=== PATIENT | female | born 2000 | race African-American/Black ===

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

== ENCOUNTER 2021-02-14 07:18 | Outpatient (CLI) | payer MEDICAID | END 2021-02-14 07:19 | disposition home or self-care (01) | LOC: NM 07:18 | PROVIDERS: ATTEND Physician Assistant Medical | DX: R10.9 Unspecified abdominal pain (principal); R11.2 Nausea with vomiting, unspecified; R63.4 Abnormal weight loss | CPT/HCPCS: 74019; 78264; A9541 ==

== ENCOUNTER 2021-03-04 08:42 | Outpatient (CLI) | payer OTHER | END 2021-03-04 08:43 | disposition home or self-care (01) | LOC: DTY/OP 08:42 | PROVIDERS: ATTEND Internal Medicine Gastroenterology | DX: K31.84 Gastroparesis (principal); R11.2 Nausea with vomiting, unspecified | CPT/HCPCS: 97802 ==

== ENCOUNTER 2023-10-05 13:35 | Inpatient (IN) | payer SELFPAY ==
[2023-10-05] MEDS: diphenhydrAMINE 50 MG/ML VIAL IVP PRN (20:21)
[2023-10-05] MEDS ORDERED: Electrolyte Replacement Protocol 1 EACH FS SCH (20:21)
[2023-10-05] MEDS ORDERED: Dextrose 5% in Water 1,000 ML IV PRN (20:21)
[2023-10-05] MEDS: Piperacillin/Tazobactam 3.375 GM in Sodium Chloride 0.9% 100 ML IVPB SCH ×2 (20:22→23:52)
[2023-10-05 20:23] LABS: Actual Bicarbonate (HCO3v) 28.5 mEq/L (22-28); Base Excess 3.8 mEq/L (-2.0 to +3.0); Calcium, Ionized (venous) 1.12 mmol/L (1.16-1.32); Chloride (VBG) 91 mmol/L (98-106); Hematocrit-VBG 23 % (36.0-47.0); Hemoglobin (Hb) 7.7 g/dL (11.7-15.5); Potassium (VBG) 3.82 mmol/L (3.70-5.30); Sodium 129 mmol/L (133-146); pH (venous) 7.429 (7.32-7.43)
[2023-10-05 20:27] LABS: Hematocrit 27.7 % (36.0-47.0); Mean Corpuscular HGB CONC 36.1 g/dL (32.0-36.0); Mean Corpuscular Hemoglobin 31.9 pg (27.0-31.0); Mean Corpuscular Volume 88.5 fL (78.0-98.0); Mean Platelet Volume 11.3 fL (7.4-10.4); Platelet Count 83 10x3/uL (130-400); RBC Distribution Width 14.1 % (11.5-14.5); Red Blood Cell (RBC) Count 3.13 mill/uL (4.20-5.40)
[2023-10-05 20:29] LABS: Anion Gap 22 mmol/L (10-20); BUN (Urea Nitrogen) 44 mg/dL (7.0-18.7); Calc. Creatinine Clearance 0 mL/min (70-130); Calcium 9.5 mg/dL (7.8-10.44); Carbon Dioxide 20 mmol/L (22-29); Chloride 94 mmol/L (98-107); Estimated GFR 46; Glucose 327 mg/dL (70-105); Potassium 3.9 mmol/L (3.5-5.1); Sodium 132 mmol/L (136-145)
[2023-10-05 20:42] LABS: Lactic Acid 1.1 mmol/L (0.5-2.2)
[2023-10-05] MEDS ORDERED: Acetaminophen 325 MG TAB PO PRN (20:57)
[2023-10-05 20:59] LABS: Anisocytosis SLIGHT = 6-15 cells HPF (0-5); Band 1 % (5-11); Lymphocytes 10 % (21-51); Macrocytosis SLIGHT = 6-15 cells HPF (0-5); Monocytes 8 % (0-10); Neutrophil 81 % (42-75); Platelet Adequacy Comment Platelets Decreased; Polychromasia SLIGHT = 2-3 cells HPF (0-2); Stomatocytes SLIGHT = 2-5 cells HPF (0-1)
[2023-10-05] MEDS: fentaNYL 50 mcg/mL 1 mL Vial SLOW IVP PRN (21:17)
[2023-10-05] MEDS: Lactated Ringer's 1,000 ML IV SCH (21:30)
[2023-10-05] MEDS: Trospium 20 MG TAB PO SCH (21:38)
[2023-10-05 21:42] LABS: Hematocrit 19.2 % (36.0-47.0); Mean Corpuscular HGB CONC 36.5 g/dL (32.0-36.0); Mean Corpuscular Hemoglobin 32.6 pg (27.0-31.0); Mean Corpuscular Volume 89.3 fL (78.0-98.0); Mean Platelet Volume 11.5 fL (7.4-10.4); Platelet Count 64 10x3/uL (130-400); RBC Distribution Width 14.3 % (11.5-14.5); Red Blood Cell (RBC) Count 2.15 mill/uL (4.20-5.40)
[2023-10-05] MEDS: HumaLOG 300 UNITS/3 ML VIAL SC PRN (21:48)
[2023-10-05 22:21] LABS: HBCM Index 0.08 S/CO (0-0.79); HBsAg Index 0.26 S/CO (0-0.99); Hep A IgM AB NONREACTIVE (NonReactive); Hep A IgM S/CO 0.13 S/CO (0-0.79); Hep B Surf Ag NONREACTIVE S/CO (NonReactive); Hep C IgG Ab NONREACTIVE S/CO (NonReactive); Hep C Index 0.08 S/CO (0-0.79); Hepatitis B Core IgM Abs NONREACTIVE S/CO (NonReactive)
[2023-10-05 22:23] LABS: Anisocytosis SLIGHT = 6-15 cells HPF (0-5); Band 6 % (5-11); Dohle Bodies SLIGHT; Hypochromia SLIGHT = 6-15 cells HPF (0-5); Lymphocytes 11 % (21-51); Macrocytosis SLIGHT = 6-15 cells HPF (0-5); Monocytes 9 % (0-10); Neutrophil 74 % (42-75); Platelet Adequacy Comment Platelets Decreased; Polychromasia SLIGHT = 2-3 cells HPF (0-2)
[2023-10-05] MEDS ORDERED: Hyoscyamine SL 0.125 MG TAB SL SCH (23:59)
[2023-10-06 00:10] LABS: #Basophils Less than 0.03 10x3/uL (0.0-0.2); #Eosinphils Less than 0.03 10x3/uL (0.0-0.7); %Eosinophils 0.2 % (0.0-10.0); %Lymphocytes 11.5 % (21.0-51.0); %Monocytes 11.2 % (0.0-10.0); %Neutrophils 73.9 % (42.0-75.0); Mean Corpuscular HGB CONC 36.8 g/dL (32.0-36.0); Mean Corpuscular Hemoglobin 32.1 pg (27.0-31.0); Mean Corpuscular Volume 87.2 fL (78.0-98.0); Mean Platelet Volume 11.1 fL (7.4-10.4); Platelet Count 77 10x3/uL (130-400); RBC Distribution Width 14.7 % (11.5-14.5); Red Blood Cell (RBC) Count 2.18 mill/uL (4.20-5.40)
[2023-10-06 04:37] LABS: #Basophils Less than 0.03 10x3/uL (0.0-0.2); #Eosinphils Less than 0.03 10x3/uL (0.0-0.7); %Basophils 0.1 % (0.0-1.0); %Eosinophils 0.1 % (0.0-10.0); %Lymphocytes 13.6 % (21.0-51.0); %Monocytes 11.2 % (0.0-10.0); %Neutrophils 70.3 % (42.0-75.0); Hematocrit 18.1 % (36.0-47.0); Hemoglobin 6.6 g/dL (12.0-16.0); Mean Corpuscular HGB CONC 36.5 g/dL (32.0-36.0); Platelet Count 61 10x3/uL (130-400); RBC Distribution Width 15.1 % (11.5-14.5); Red Blood Cell (RBC) Count 2.13 mill/uL (4.20-5.40)
[2023-10-06 04:41] LABS: Anion Gap 14 mmol/L (10-20); BUN (Urea Nitrogen) 36 mg/dL (7.0-18.7); Calc. Creatinine Clearance 60 mL/min (70-130); Calcium 8.4 mg/dL (7.8-10.44); Carbon Dioxide 27 mmol/L (22-29); Chloride 93 mmol/L (98-107); Estimated GFR 57; Glucose 286 mg/dL (70-105); Potassium 3.7 mmol/L (3.5-5.1); Sodium 130 mmol/L (136-145)
[2023-10-06 05:23] LABS: INR-International Normal Ratio 1.2; Prothrombin Time 15.3 sec (12.0-14.7)
[2023-10-06] MEDS: Docusate 100 MG CAP PO SCH (09:09)
[2023-10-06] MEDS: Insulin Glargine 30 UNITS/0.3 ML VIAL SC SCH (09:09)
[2023-10-06] MEDS: Scopolamine 1 mg/72 hour Patch TD SCH (11:05)
[2023-10-06] MEDS: Acetaminophen 500 MG TAB PO SCH (12:24)
[2023-10-06] MEDS ORDERED: Iopamidol-370 76% 500 ML MDV (1 ML CHARGE) ONE (13:34)
[2023-10-06] MEDS ORDERED: EPINEPHrine 1 MG/ML VIAL ONE (13:48)
[2023-10-06] MEDS ORDERED: Iopamidol 15 ML ONE (13:49)
[2023-10-06] MEDS ORDERED: Bupivacaine PF 0.5% 30 ML VIAL ONE (13:49)
[2023-10-06] MEDS ORDERED: Rocuronium Bromide 10 MG/ML (10ML VIAL) ONE (14:00)
[2023-10-06] MEDS ORDERED: fentaNYL PF 100 MCG/2 ML SYRINGE ONE (14:01)
[2023-10-06] MEDS ORDERED: Midazolam HCl 2 mg/2 ml Vial ONE (14:01)
[2023-10-06] MEDS ORDERED: PROPOFOL 0 ML ONE (14:01)
[2023-10-06 14:46] LABS: #Basophils Less than 0.03 10x3/uL (0.0-0.2); #Eosinphils Less than 0.03 10x3/uL (0.0-0.7); %Basophils 0.2 % (0.0-1.0); %Eosinophils 0.2 % (0.0-10.0); %Lymphocytes 9.5 % (21.0-51.0); Hematocrit 23.9 % (36.0-47.0); Hemoglobin 8.6 g/dL (12.0-16.0); Mean Corpuscular Hemoglobin 31.7 pg (27.0-31.0); Mean Corpuscular Volume 88.2 fL (78.0-98.0); Mean Platelet Volume 11.1 fL (7.4-10.4); Platelet Count 114 10x3/uL (130-400); RBC Distribution Width 15.4 % (11.5-14.5); Red Blood Cell (RBC) Count 2.71 mill/uL (4.20-5.40)
[2023-10-06 14:59] LABS: ALT (SGPT) 13 U/L (8-55); AST (SGOT) 23 U/L (5-34); Albumin 2.6 g/dL (3.5-5.0); Alkaline Phosphatase 485 U/L (40-110); Anion Gap 15 mmol/L (10-20); BUN (Urea Nitrogen) 31 mg/dL (7.0-18.7); Bilirubin, Total 1.9 mg/dL (0.2-1.2); Calc. Creatinine Clearance 66 mL/min (70-130); Calcium 8.7 mg/dL (7.8-10.44); Carbon Dioxide 27 mmol/L (22-29); Chloride 94 mmol/L (98-107); Estimated GFR 64; Globulin 3.5 g/dL (2.4-3.5); Glucose 256 mg/dL (70-105); Protein, Total 6.1 g/dL (6.0-8.3); Sodium 132 mmol/L (136-145)
[2023-10-06] MEDS ORDERED: Etomidate 40 MG (20 mL) VIAL ONE (15:10)
[2023-10-06] MEDS ORDERED: Lidocaine 1% PF 5 ML VIAL ONE (15:25)
[2023-10-06] MEDS ORDERED: PHENYLEPHRINE-NS 100 MCG/ML 10 ML SYRINGE ONE (15:39)
[2023-10-06] MEDS ORDERED: Glucagon 1 MG/ML KIT ONE (15:55)
[2023-10-06] MEDS ORDERED: Dexamethasone 20 MG/5 ML VIAL ONE (16:00)
[2023-10-06] MEDS ORDERED: Ondansetron PF 4 MG/2 ML Vial ONE (16:00)
[2023-10-06] MEDS ORDERED: Insulin Regular 300 UNITS/3 ML VIAL ONE (16:03)
[2023-10-06] MEDS ORDERED: SUGAMMADEX SODIUM 200 MG/2 ML VIAL ONE (16:09)
[2023-10-06] MEDS ORDERED: Promethazine HCl 25 MG/ML VIAL IM PRN (16:29)
[2023-10-06] MEDS ORDERED: Ondansetron HCl/PF 4 MG/2 ML Vial IVP PRN (16:29)
[2023-10-06] MEDS ORDERED: HYDROmorphone 2 MG/ML VIAL ONE (16:43)
[2023-10-06] MEDS ORDERED: Promethazine HCl 25 MG/ML VIAL ONE (16:46)
[2023-10-06] MEDS: oxyCODONE 5 MG TAB PO PRN (20:03)
[2023-10-06 20:10] LABS: #Basophils 0.06 10x3/uL (0.0-0.2); #Eosinphils Less than 0.03 10x3/uL (0.0-0.7); %Basophils 0.3 % (0.0-1.0); %Lymphocytes 4.5 % (21.0-51.0); %Monocytes 5.9 % (0.0-10.0); %Neutrophils 86.3 % (42.0-75.0); Hematocrit 28.9 % (36.0-47.0); Hemoglobin 10.5 g/dL (12.0-16.0); Mean Corpuscular HGB CONC 36.3 g/dL (32.0-36.0); Mean Corpuscular Hemoglobin 30.7 pg (27.0-31.0); Mean Corpuscular Volume 84.5 fL (78.0-98.0); Mean Platelet Volume 11.2 fL (7.4-10.4); Platelet Count 109 10x3/uL (130-400); RBC Distribution Width 15.4 % (11.5-14.5); Red Blood Cell (RBC) Count 3.42 mill/uL (4.20-5.40)
[2023-10-06 21:11] LABS: Platelet Adequacy Comment Platelets Decreased; Target Cells SLIGHT = 2-5 cells HPF (0-1)
[2023-10-06] MEDS: traMADol HCl 50 MG TAB PO PRN (23:05)
[2023-10-07] MEDS: Ondansetron PF 4 MG/2 ML Vial IVP PRN (01:48)
[2023-10-07 06:17] LABS: #Basophils 0.03 10x3/uL (0.0-0.2); #Eosinphils Less than 0.03 10x3/uL (0.0-0.7); %Basophils 0.2 % (0.0-1.0); %Lymphocytes 8.3 % (21.0-51.0); %Monocytes 8.5 % (0.0-10.0); %Neutrophils 79.6 % (42.0-75.0); Hematocrit 25.8 % (36.0-47.0); Hemoglobin 9.2 g/dL (12.0-16.0); Mean Corpuscular HGB CONC 35.7 g/dL (32.0-36.0); Mean Corpuscular Hemoglobin 30.8 pg (27.0-31.0); Mean Corpuscular Volume 86.3 fL (78.0-98.0); Mean Platelet Volume 11.6 fL (7.4-10.4); Platelet Count 94 10x3/uL (130-400); RBC Distribution Width 15.9 % (11.5-14.5); Red Blood Cell (RBC) Count 2.99 mill/uL (4.20-5.40)
[2023-10-07 06:39] LABS: ALT (SGPT) 27 U/L (8-55); AST (SGOT) 68 U/L (5-34); Albumin 2.2 g/dL (3.5-5.0); Alkaline Phosphatase 435 U/L (40-110); Anion Gap 19 mmol/L (10-20); BUN (Urea Nitrogen) 37 mg/dL (7.0-18.7); Bilirubin, Direct 1.2 mg/dL (0.1-0.3); Bilirubin, Total 2.1 mg/dL (0.2-1.2); Calc. Creatinine Clearance 74 mL/min (70-130); Calcium 8.3 mg/dL (7.8-10.44); Carbon Dioxide 21 mmol/L (22-29); Chloride 97 mmol/L (98-107); Estimated GFR 72; Glucose 215 mg/dL (70-105); Potassium 4.5 mmol/L (3.5-5.1); Protein, Total 5.3 g/dL (6.0-8.3); Sodium 132 mmol/L (136-145)
[2023-10-07] MEDS: HumaLOG 300 UNITS/3 ML VIAL SC PRN (06:43)
[2023-10-07 06:46] LABS: INR-International Normal Ratio 1.2; Prothrombin Time 15.6 sec (12.0-14.7)
[2023-10-07 06:53] LABS: D-Dimer Test 10.09 mcg/mL (0.27-0.43)
[2023-10-07] MEDS: Albumin 25% 25 GM (100 mL) BOT IVPB SCH (09:26)
[2023-10-07] MEDS: Sodium Bicarbonate 150 MEQ in Dextrose 5% in Water 1,000 ML IV SCH (09:26)
[2023-10-07] MEDS: Promethazine HCl 25 MG in Sodium Chloride 0.9% 50 ML IVPB PRN (21:28)
[2023-10-08 04:52] LABS: #Basophils 0.03 10x3/uL (0.0-0.2); #Eosinphils Less than 0.03 10x3/uL (0.0-0.7); %Basophils 0.2 % (0.0-1.0); %Eosinophils 0.1 % (0.0-10.0); %Lymphocytes 8.1 % (21.0-51.0); %Monocytes 6.6 % (0.0-10.0); %Neutrophils 83.1 % (42.0-75.0); Hematocrit 24.9 % (36.0-47.0); Hemoglobin 9.1 g/dL (12.0-16.0); Mean Corpuscular HGB CONC 36.5 g/dL (32.0-36.0); Mean Corpuscular Hemoglobin 31.7 pg (27.0-31.0); Mean Corpuscular Volume 86.8 fL (78.0-98.0); Platelet Count 101 10x3/uL (130-400); RBC Distribution Width 15.1 % (11.5-14.5); Red Blood Cell (RBC) Count 2.87 mill/uL (4.20-5.40)
[2023-10-08 05:00] LABS: INR-International Normal Ratio 1.3; PTT 32.3 sec (22.9-36.1); Prothrombin Time 16.3 sec (12.0-14.7)
[2023-10-08 05:01] LABS: Lactic Acid 2.7 mmol/L (0.5-2.2)
[2023-10-08 05:07] LABS: ALT (SGPT) 22 U/L (8-55); AST (SGOT) 43 U/L (5-34); Albumin 2.8 g/dL (3.5-5.0); Alkaline Phosphatase 272 U/L (40-110); Anion Gap 15 mmol/L (10-20); BUN (Urea Nitrogen) 26 mg/dL (7.0-18.7); Bilirubin, Total 2.3 mg/dL (0.2-1.2); Calc. Creatinine Clearance 76 mL/min (70-130); Calcium 8.1 mg/dL (7.8-10.44); Carbon Dioxide 29 mmol/L (22-29); Chloride 93 mmol/L (98-107); D-Dimer Test 10.89 mcg/mL (0.27-0.43); Estimated GFR 75; Glucose 193 mg/dL (70-105); Potassium 3.5 mmol/L (3.5-5.1); Protein, Total 5.4 g/dL (6.0-8.3); Sodium 133 mmol/L (136-145)
[2023-10-08] MEDS ORDERED: Potassium Chloride 20 MEQ TAB PO SCH (08:00)
[2023-10-08] MEDS: Potassium Chloride 20 MEQ (100 mL) BAG ONE (08:06)
[2023-10-08] MEDS: Potassium Chloride 20 MEQ in Premix 1 BAG IVPB SCH (08:06)
[2023-10-08] MEDS: Mag-Al 1200 mg/1200 mg/30 ML UDCUP PO SCH (09:32)
[2023-10-08] MEDS ORDERED: Iopamidol-370 76% 500 ML MDV (1 ML CHARGE) ONE (09:58)
[2023-10-08] MEDS: Morphine 2 MG/ML VIAL SLOW IVP PRN (12:58)
[2023-10-08] MEDS: oxyCODONE 5 MG TAB PO PRN (14:28)
[2023-10-08] MEDS ORDERED: Bisacodyl 10 MG SUPP PR PRN (17:48)
[2023-10-08] MEDS: Albumin 25% 25 GM (100 mL) BOT IVPB SCH (18:02)
[2023-10-08] MEDS: Lactated Ringer's 1,000 ML IV SCH (18:03)
[2023-10-08] MEDS: Polyethylene Glycol 3350 17 GM Packet PO SCH (18:11)
[2023-10-08] MEDS: Pantoprazole DR 40 MG TAB PO SCH (18:39)
[2023-10-09 04:09] LABS: #Basophils Less than 0.03 10x3/uL (0.0-0.2); %Basophils 0.1 % (0.0-1.0); %Eosinophils 0.3 % (0.0-10.0); %Lymphocytes 9.5 % (21.0-51.0); %Monocytes 6.1 % (0.0-10.0); Hematocrit 22.3 % (36.0-47.0); Hemoglobin 7.8 g/dL (12.0-16.0); Mean Corpuscular Volume 88.5 fL (78.0-98.0); Mean Platelet Volume 11.9 fL (7.4-10.4); Platelet Count 104 10x3/uL (130-400); Red Blood Cell (RBC) Count 2.52 mill/uL (4.20-5.40)
[2023-10-09 04:24] LABS: INR-International Normal Ratio 1.2; Prothrombin Time 15.3 sec (12.0-14.7)
[2023-10-09 04:25] LABS: PTT 33.5 sec (22.9-36.1)
[2023-10-09 04:31] LABS: ALT (SGPT) 16 U/L (8-55); AST (SGOT) 19 U/L (5-34); Albumin 2.6 g/dL (3.5-5.0); Alkaline Phosphatase 208 U/L (40-110); Anion Gap 15 mmol/L (10-20); BUN (Urea Nitrogen) 18 mg/dL (7.0-18.7); Bilirubin, Direct 0.8 mg/dL (0.1-0.3); Bilirubin, Total 1.6 mg/dL (0.2-1.2); Calc. Creatinine Clearance 99 mL/min (70-130); Calcium 7.9 mg/dL (7.8-10.44); Carbon Dioxide 26 mmol/L (22-29); Chloride 95 mmol/L (98-107); Estimated GFR 103; Glucose 166 mg/dL (70-105); Potassium 3.2 mmol/L (3.5-5.1); Protein, Total 5.1 g/dL (6.0-8.3); Sodium 133 mmol/L (136-145)
[2023-10-09 04:38] LABS: D-Dimer Test 5.12 mcg/mL (0.27-0.43)
[2023-10-09 09:03] LABS: Phosphorus 3.4 mg/dL (2.3-4.7)
[2023-10-09] MEDS: Insulin Glargine 30 UNITS/0.3 ML VIAL SC SCH (09:04)
[2023-10-09 09:05] LABS: Magnesium 1.2 mg/dL (1.6-2.6)
[2023-10-09] MEDS: Scopolamine 1 mg/72 hour Patch TD SCH (09:05)
[2023-10-09] MEDS: Potassium Chloride 20 MEQ TAB PO SCH (09:06)
[2023-10-09] MEDS: Pantoprazole DR 40 MG TAB PO SCH (09:06)
[2023-10-09] MEDS: Polyethylene Glycol 3350 17 GM Packet PO SCH (09:06)
[2023-10-09] MEDS: Lactated Ringer's 1,000 ML IV SCH (09:22)
[2023-10-09] MEDS ORDERED: Insulin Glargine 30 UNITS/0.3 ML VIAL SC SCH (10:08)
[2023-10-09] MEDS: Magnesium Sulfate In Water 4 GM in Premix 1 BAG IVPB SCH (11:53)
[2023-10-09] MEDS: Lorazepam 2 MG/ML VIAL SLOW IVP SCH (11:53)
[2023-10-09] MEDS: Metoclopramide HCl 10 MG (2 mL) VIAL IVP SCH (11:53)
[2023-10-09] MEDS: Metoprolol Tartrate 25 MG TAB PO SCH (20:00)
[2023-10-09] MEDS: Meropenem 2 GM, Admixture Fee 1 EACH in Sodium Chloride 0.9% 100 ML IVPB SCH ×2 (20:51→21:10)
[2023-10-09] MEDS ORDERED: Meropenem 2 GM in Sodium Chloride 0.9% 100 ML IVPB SCH (22:00)
[2023-10-10 03:45] LABS: Actual Bicarbonate (HCO3a) 19.6 mEq/L (22-28); CO2 Tension 25.4 mmHg (35.0-45.0); Calcium, Ionized (arterial) 1.09 mmol/L (1.12-1.30); Carboxyhemoglobin (COHb) 0.1 gm% (0.0-3.0); Hematocrit-ABG 39 % (36.0-47.0); Hemoglobin (Hb) 13.1 g/dL (12.0-16.0); O2 Tension (PaO2), arterial 152.7 mmHg (80.0-100.0); Potassium - ABG Lab 3.26 mmol/L (3.70-5.30); pH, Arterial 7.505 (7.35-7.45)
[2023-10-10 05:29] LABS: #Basophils Less than 0.03 10x3/uL (0.0-0.2); #Eosinphils Less than 0.03 10x3/uL (0.0-0.7); Hemoglobin 7.5 g/dL (12.0-16.0)
[2023-10-10 05:43] LABS: %Basophils 0.1 % (0.0-1.0); %Eosinophils 0.1 % (0.0-10.0); %Lymphocytes 10.3 % (21.0-51.0); %Monocytes 7.6 % (0.0-10.0); %Neutrophils 80.7 % (42.0-75.0); Hematocrit 21.9 % (36.0-47.0); Mean Corpuscular HGB CONC 34.2 g/dL (32.0-36.0); Mean Corpuscular Volume 90.5 fL (78.0-98.0); Mean Platelet Volume 12.1 fL (7.4-10.4); Platelet Count 158 10x3/uL (130-400); RBC Distribution Width 15.2 % (11.5-14.5); Red Blood Cell (RBC) Count 2.42 mill/uL (4.20-5.40)
[2023-10-10 05:54] LABS: ALT (SGPT) 11 U/L (8-55); AST (SGOT) 17 U/L (5-34); Albumin 2.3 g/dL (3.5-5.0); Alkaline Phosphatase 237 U/L (40-110); Anion Gap 9 mmol/L (10-20); BUN (Urea Nitrogen) 11 mg/dL (7.0-18.7); Bilirubin, Direct 0.5 mg/dL (0.1-0.3); Calc. Creatinine Clearance 107 mL/min (70-130); Calcium 7.9 mg/dL (7.8-10.44); Carbon Dioxide 27 mmol/L (22-29); Chloride 99 mmol/L (98-107); Estimated GFR 107; Glucose 65 mg/dL (70-105); Potassium 3.4 mmol/L (3.5-5.1); Protein, Total 5.1 g/dL (6.0-8.3); Sodium 132 mmol/L (136-145)
[2023-10-10 07:58] LABS: Magnesium 1.6 mg/dL (1.6-2.6)
[2023-10-10] MEDS ORDERED: Insulin Glargine 30 UNITS/0.3 ML VIAL SC SCH (09:00)
[2023-10-10] MEDS: Potassium Chloride 20 MEQ TAB PO SCH (09:20)
[2023-10-10] MEDS: Insulin Glargine 30 UNITS/0.3 ML VIAL SC SCH (09:22)
[2023-10-10] MEDS: Magnesium 2 GM/50 ML(in water) 2 GM in Premix 1 BAG IVPB SCH (11:04)
[2023-10-10] MEDS: Albumin 25% 25 GM (100 mL) BOT IVPB SCH ×2 (11:05→17:14)
[2023-10-10] MEDS: Lorazepam 2 MG/ML VIAL SLOW IVP PRN (13:34)
[2023-10-11 04:08] LABS: #Basophils Less than 0.03 10x3/uL (0.0-0.2); #Eosinphils Less than 0.03 10x3/uL (0.0-0.7); %Basophils 0.1 % (0.0-1.0); %Eosinophils 0.1 % (0.0-10.0); %Lymphocytes 11.8 % (21.0-51.0); %Monocytes 8.6 % (0.0-10.0); %Neutrophils 78.5 % (42.0-75.0); Hematocrit 20.4 % (36.0-47.0); Hemoglobin 6.9 g/dL (12.0-16.0); Mean Corpuscular HGB CONC 33.8 g/dL (32.0-36.0); Mean Corpuscular Hemoglobin 31.2 pg (27.0-31.0); Mean Corpuscular Volume 92.3 fL (78.0-98.0); Mean Platelet Volume 11.4 fL (7.4-10.4); Platelet Count 192 10x3/uL (130-400); RBC Distribution Width 15.6 % (11.5-14.5); Red Blood Cell (RBC) Count 2.21 mill/uL (4.20-5.40)
[2023-10-11 04:26] LABS: ALT (SGPT) 9 U/L (8-55); AST (SGOT) 13 U/L (5-34); Alkaline Phosphatase 196 U/L (40-110); Anion Gap 14 mmol/L (10-20); BUN (Urea Nitrogen) 12 mg/dL (7.0-18.7); Bilirubin, Direct 0.5 mg/dL (0.1-0.3); Calc. Creatinine Clearance 92 mL/min (70-130); Carbon Dioxide 21 mmol/L (22-29); Chloride 100 mmol/L (98-107); Estimated GFR 91; Glucose 276 mg/dL (70-105); Magnesium 1.8 mg/dL (1.6-2.6); Potassium 4.2 mmol/L (3.5-5.1); Protein, Total 5.4 g/dL (6.0-8.3); Sodium 131 mmol/L (136-145)
[2023-10-11] MEDS: Metoprolol Tartrate 25 MG TAB PO SCH (08:40)
[2023-10-11] MEDS: Magnesium 2 GM/50 ML(in water) 2 GM in Premix 1 BAG IVPB SCH (08:40)
[2023-10-11] MEDS: Vancomycin 1 GM in Premix 1 BAG IVPB SCH (13:45)
[2023-10-11] MEDS ORDERED: Iopamidol-370 76% 500 ML MDV (1 ML CHARGE) ONE (14:27)
[2023-10-12 00:03] LABS: Hematocrit 24.7 % (36.0-47.0); Hemoglobin 8.6 g/dL (12.0-16.0); Platelet Count 292 10x3/uL (130-400)
[2023-10-12 00:04] LABS: INR-International Normal Ratio 1.2; Prothrombin Time 14.7 sec (12.0-14.7)
[2023-10-12 00:05] LABS: PTT 35.9 sec (22.9-36.1)
[2023-10-12] MEDS: Dextrose 50% Abboject 50 ML SYRINGE SLOW IVP PRN (00:34)
[2023-10-12] MEDS: Morphine 2 MG/ML VIAL SLOW IVP SCH (01:13)
[2023-10-12] MEDS: fentaNYL 50 mcg/mL 1 mL Vial SLOW IVP SCH (03:07)
[2023-10-12 03:39] LABS: #Basophils Less than 0.03 10x3/uL (0.0-0.2); %Basophils 0.2 % (0.0-1.0); %Eosinophils 0.2 % (0.0-10.0); %Lymphocytes 12.2 % (21.0-51.0); %Monocytes 11.5 % (0.0-10.0); Hemoglobin 9.1 g/dL (12.0-16.0); Mean Corpuscular Hemoglobin 31.1 pg (27.0-31.0); Mean Corpuscular Volume 88.7 fL (78.0-98.0); Mean Platelet Volume 10.9 fL (7.4-10.4); Platelet Count 297 10x3/uL (130-400); RBC Distribution Width 16.4 % (11.5-14.5); Red Blood Cell (RBC) Count 2.93 mill/uL (4.20-5.40)
[2023-10-12 04:37] LABS: Anion Gap 12 mmol/L (10-20); BUN (Urea Nitrogen) 10 mg/dL (7.0-18.7); Calc. Creatinine Clearance 94 mL/min (70-130); Calcium 8.3 mg/dL (7.8-10.44); Carbon Dioxide 23 mmol/L (22-29); Chloride 103 mmol/L (98-107); Estimated GFR 93; Glucose 76 mg/dL (70-105); Potassium 4.1 mmol/L (3.5-5.1); Sodium 134 mmol/L (136-145)
[2023-10-12 06:27] LABS: Lactic Acid 0.9 mmol/L (0.5-2.2)
[2023-10-12] MEDS ORDERED: fentaNYL 50 mcg/mL 1 mL Vial ONE (08:17)
[2023-10-12] MEDS ORDERED: Sodium Bicarbonate 2.5 MEQ/5 ML SDV ONE (08:18)
[2023-10-12] MEDS ORDERED: Midazolam HCl 2 mg/2 ml Vial ONE (08:18)
[2023-10-12 11:18] LABS: Body Fluid Source Abscess Fluid; Clarity Cloudy/Turbid (Clear); Tube # EDTA
[2023-10-12 11:19] LABS: BF Color Brown
[2023-10-12] MEDS ORDERED: Senokot S 8.6-50 MG TAB PO PRN (15:18)
[2023-10-12] MEDS: Lorazepam 2 MG/ML VIAL SLOW IVP SCH (19:43)
[2023-10-12] MEDS: Morphine 4 MG/ML VIAL SLOW IVP PRN (20:30)
[2023-10-13] MEDS: Dextrose 5 % And 0.9 % NaCl 1,000 ML IV SCH ×2 (01:15→05:40)
[2023-10-13 01:40] LABS: #Basophils 0.03 10x3/uL (0.0-0.2); %Basophils 0.3 % (0.0-1.0); %Eosinophils 0.4 % (0.0-10.0); %Lymphocytes 13.5 % (21.0-51.0); %Monocytes 12.7 % (0.0-10.0); %Neutrophils 72.3 % (42.0-75.0); Hematocrit 24.7 % (36.0-47.0); Hemoglobin 8.5 g/dL (12.0-16.0); Mean Corpuscular HGB CONC 34.4 g/dL (32.0-36.0); Mean Corpuscular Hemoglobin 30.9 pg (27.0-31.0); Mean Corpuscular Volume 89.8 fL (78.0-98.0); Mean Platelet Volume 10.6 fL (7.4-10.4); Platelet Count 310 10x3/uL (130-400); RBC Distribution Width 16.6 % (11.5-14.5); Red Blood Cell (RBC) Count 2.75 mill/uL (4.20-5.40)
[2023-10-13 01:55] LABS: Anion Gap 12 mmol/L (10-20); BUN (Urea Nitrogen) 10 mg/dL (7.0-18.7); Calc. Creatinine Clearance 108 mL/min (70-130); Calcium 8.2 mg/dL (7.8-10.44); Carbon Dioxide 22 mmol/L (22-29); Chloride 102 mmol/L (98-107); Estimated GFR 109; Glucose 167 mg/dL (70-105); Potassium 3.2 mmol/L (3.5-5.1); Sodium 133 mmol/L (136-145)
[2023-10-13] MEDS: Potassium Chloride 20 MEQ in Premix 1 BAG IVPB SCH (03:10)
[2023-10-13] MEDS: Morphine 4 MG/ML VIAL SLOW IVP PRN ×2 (05:23→20:33)
[2023-10-13] MEDS: Potassium Bicarbonate/Cit Ac 20 MEQ TAB PO SCH (14:53)
[2023-10-13] MEDS: Hyoscyamine SL 0.125 MG TAB PO PRN (16:51)
[2023-10-14] MEDS: Dextrose 5 % And 0.9 % NaCl 1,000 ML IV SCH ×2 (00:11→09:05)
[2023-10-14] MEDS: Morphine 4 MG/ML VIAL SLOW IVP PRN ×2 (02:31→16:00)
[2023-10-14] MEDS: fentaNYL 25 mcg Patch TD SCH ×2 (02:46→12:58)
[2023-10-14 06:33] LABS: #Basophils 0.03 10x3/uL (0.0-0.2); %Basophils 0.3 % (0.0-1.0); %Eosinophils 0.8 % (0.0-10.0); %Lymphocytes 18.4 % (21.0-51.0); %Monocytes 18.2 % (0.0-10.0); %Neutrophils 61.2 % (42.0-75.0); Hematocrit 25.3 % (36.0-47.0); Hemoglobin 8.4 g/dL (12.0-16.0); Mean Corpuscular HGB CONC 33.2 g/dL (32.0-36.0); Mean Corpuscular Volume 90.4 fL (78.0-98.0); Mean Platelet Volume 9.9 fL (7.4-10.4); Platelet Count 397 10x3/uL (130-400); RBC Distribution Width 15.7 % (11.5-14.5)
[2023-10-14 07:27] LABS: Anion Gap 12 mmol/L (10-20); BUN (Urea Nitrogen) 6 mg/dL (7.0-18.7); Calc. Creatinine Clearance 106 mL/min (70-130); Calcium 8.1 mg/dL (7.8-10.44); Carbon Dioxide 23 mmol/L (22-29); Chloride 106 mmol/L (98-107); Estimated GFR 111; Glucose 79 mg/dL (70-105); Potassium 3.7 mmol/L (3.5-5.1); Sodium 137 mmol/L (136-145)
[2023-10-15] MEDS: Acetaminophen 650 MG Suppository PR SCH (05:45)
[2023-10-15 05:59] LABS: #Basophils 0.03 10x3/uL (0.0-0.2); %Basophils 0.3 % (0.0-1.0); %Eosinophils 0.7 % (0.0-10.0); %Monocytes 9.8 % (0.0-10.0); %Neutrophils 77.3 % (42.0-75.0); Hematocrit 25.4 % (36.0-47.0); Hemoglobin 8.3 g/dL (12.0-16.0); Mean Corpuscular HGB CONC 32.7 g/dL (32.0-36.0); Mean Corpuscular Hemoglobin 30.4 pg (27.0-31.0); Mean Platelet Volume 9.7 fL (7.4-10.4); Platelet Count 426 10x3/uL (130-400); RBC Distribution Width 15.4 % (11.5-14.5); Red Blood Cell (RBC) Count 2.73 mill/uL (4.20-5.40)
[2023-10-15 06:26] LABS: Anion Gap 16 mmol/L (10-20); BUN (Urea Nitrogen) 7 mg/dL (7.0-18.7); Calc. Creatinine Clearance 88 mL/min (70-130); Calcium 7.9 mg/dL (7.8-10.44); Carbon Dioxide 19 mmol/L (22-29); Chloride 105 mmol/L (98-107); Estimated GFR 89; Glucose 188 mg/dL (70-105); Potassium 3.2 mmol/L (3.5-5.1); Sodium 137 mmol/L (136-145)
[2023-10-15] MEDS: Lorazepam 2 MG/ML VIAL SLOW IVP PRN (08:27)
[2023-10-15] MEDS: Insulin Glargine 30 UNITS/0.3 ML VIAL SC SCH (09:22)
[2023-10-15] MEDS: Potassium Chloride 20 MEQ TAB PO SCH (09:36)
[2023-10-15] MEDS ORDERED: Iopamidol-370 76% 500 ML MDV (1 ML CHARGE) ONE (10:58)
[2023-10-15] MEDS: Acetaminophen 500 MG TAB PO SCH (12:25)
[2023-10-16 05:33] LABS: #Basophils Less than 0.03 10x3/uL (0.0-0.2); %Basophils 0.2 % (0.0-1.0); %Eosinophils 0.6 % (0.0-10.0); %Lymphocytes 10.8 % (21.0-51.0); %Monocytes 10.4 % (0.0-10.0); %Neutrophils 76.4 % (42.0-75.0); Hemoglobin 8.9 g/dL (12.0-16.0); Mean Corpuscular Hemoglobin 30.3 pg (27.0-31.0); Mean Corpuscular Volume 91.8 fL (78.0-98.0); Mean Platelet Volume 9.8 fL (7.4-10.4); Platelet Count 471 10x3/uL (130-400); Red Blood Cell (RBC) Count 2.94 mill/uL (4.20-5.40)
[2023-10-16 06:23] LABS: Anion Gap 15 mmol/L (10-20); BUN (Urea Nitrogen) 6 mg/dL (7.0-18.7); Calc. Creatinine Clearance 91 mL/min (70-130); Calcium 8.5 mg/dL (7.8-10.44); Carbon Dioxide 20 mmol/L (22-29); Chloride 105 mmol/L (98-107); Estimated GFR 92; Glucose 154 mg/dL (70-105); Potassium 3.7 mmol/L (3.5-5.1); Sodium 136 mmol/L (136-145)
[2023-10-16] MEDS: hydrOXYzine 25 MG TAB PO PRN (09:19)
[2023-10-16] MEDS: Sodium Chloride 0.9% 1,000 ML IV SCH ×2 (12:27→16:55)
[2023-10-16] MEDS: Morphine 4 MG/ML VIAL SLOW IVP PRN (15:34)
[2023-10-16] MEDS: Ketorolac Tromethamine 30 MG (1 mL) VIAL IVP SCH (16:54)
[2023-10-17 19:08] LABS: Anion Gap 14 mmol/L (10-20); BUN (Urea Nitrogen) 6 mg/dL (7.0-18.7); Calc. Creatinine Clearance 95 mL/min (70-130); Carbon Dioxide 19 mmol/L (22-29); Chloride 106 mmol/L (98-107); Estimated GFR 107; Glucose 56 mg/dL (70-105); Sodium 136 mmol/L (136-145)
[2023-10-17 19:09] LABS: #Basophils 0.06 10x3/uL (0.0-0.2); %Basophils 0.5 % (0.0-1.0); %Eosinophils 0.5 % (0.0-10.0); %Lymphocytes 12.5 % (21.0-51.0); %Monocytes 13.4 % (0.0-10.0); %Neutrophils 71.3 % (42.0-75.0); Hematocrit 26.2 % (36.0-47.0); Hemoglobin 8.9 g/dL (12.0-16.0); Mean Corpuscular Hemoglobin 30.3 pg (27.0-31.0); Mean Corpuscular Volume 89.1 fL (78.0-98.0); Mean Platelet Volume 9.9 fL (7.4-10.4); Platelet Count 494 10x3/uL (130-400); RBC Distribution Width 14.8 % (11.5-14.5); Red Blood Cell (RBC) Count 2.94 mill/uL (4.20-5.40)
[2023-10-17] MEDS: Potassium Chloride 20 MEQ TAB PO SCH (22:30)
[2023-10-18] MEDS: Glucagon 1 MG/ML KIT IM PRN (05:26)
[2023-10-18 05:43] LABS: #Basophils 0.03 10x3/uL (0.0-0.2); %Basophils 0.3 % (0.0-1.0); %Eosinophils 0.9 % (0.0-10.0); %Lymphocytes 17.5 % (21.0-51.0); %Monocytes 18.2 % (0.0-10.0); %Neutrophils 61.2 % (42.0-75.0); Hematocrit 25.6 % (36.0-47.0); Hemoglobin 8.6 g/dL (12.0-16.0); Mean Corpuscular HGB CONC 33.6 g/dL (32.0-36.0); Mean Corpuscular Hemoglobin 30.6 pg (27.0-31.0); Mean Corpuscular Volume 91.1 fL (78.0-98.0); Mean Platelet Volume 9.6 fL (7.4-10.4); Platelet Count 487 10x3/uL (130-400); RBC Distribution Width 14.6 % (11.5-14.5); Red Blood Cell (RBC) Count 2.81 mill/uL (4.20-5.40)
[2023-10-18 06:15] LABS: Anion Gap 12 mmol/L (10-20); BUN (Urea Nitrogen) 5 mg/dL (7.0-18.7); Calc. Creatinine Clearance 101 mL/min (70-130); Calcium 7.8 mg/dL (7.8-10.44); Carbon Dioxide 21 mmol/L (22-29); Chloride 106 mmol/L (98-107); Estimated GFR 116; Glucose 53 mg/dL (70-105); Potassium 2.9 mmol/L (3.5-5.1); Sodium 136 mmol/L (136-145)
[2023-10-18] MEDS: Potassium Chloride 20 MEQ TAB PO SCH (08:20)
[2023-10-18] MEDS: Ketorolac Tromethamine 30 MG (1 mL) VIAL IVP PRN (08:30)
[2023-10-18] MEDS ORDERED: Sodium Bicarbonate 2.5 MEQ/5 ML SDV ONE (12:27)
[2023-10-18] MEDS ORDERED: Lidocaine 1% PF 5 ML VIAL ONE (12:28)
[2023-10-18] MEDS: Sodium Chloride 0.9% 1,000 ML IV SCH (15:49)
[2023-10-18] MEDS: Promethazine HCl 25 MG in Sodium Chloride 0.9% 50 ML IVPB PRN (16:24)
[2023-10-19 06:17] VITALS: BMI 24.7
[2023-10-19 06:26] LABS: Anion Gap 11 mmol/L (10-20); BUN (Urea Nitrogen) 6 mg/dL (7.0-18.7); Calc. Creatinine Clearance 113 mL/min (70-130); Calcium 7.8 mg/dL (7.8-10.44); Carbon Dioxide 22 mmol/L (22-29); Chloride 105 mmol/L (98-107); Estimated GFR 118; Glucose 38 mg/dL (70-105); Potassium 2.7 mmol/L (3.5-5.1); Sodium 135 mmol/L (136-145)
[2023-10-19 07:09] LABS: #Basophils Less than 0.03 10x3/uL (0.0-0.2); %Basophils 0.2 % (0.0-1.0); %Eosinophils 0.8 % (0.0-10.0); %Lymphocytes 6.8 % (21.0-51.0); Hemoglobin 9.1 g/dL (12.0-16.0); Mean Corpuscular HGB CONC 32.5 g/dL (32.0-36.0); Mean Corpuscular Hemoglobin 29.9 pg (27.0-31.0); Mean Corpuscular Volume 92.1 fL (78.0-98.0); Mean Platelet Volume 9.8 fL (7.4-10.4); Platelet Count 568 10x3/uL (130-400); RBC Distribution Width 14.8 % (11.5-14.5); Red Blood Cell (RBC) Count 3.04 mill/uL (4.20-5.40)
[2023-10-19] MEDS: Potassium Chloride 20 MEQ TAB PO SCH ×2 (08:27→20:38)
[2023-10-19] MEDS ORDERED: Insulin Glargine 30 UNITS/0.3 ML VIAL SC SCH (08:38)
[2023-10-19 09:46] LABS: Magnesium 1.3 mg/dL (1.6-2.6)
[2023-10-19] MEDS: Magnesium Sulfate In Water 4 GM in Premix 1 BAG IVPB SCH (11:24)
[2023-10-19] MEDS ORDERED: Potassium Chloride 20 MEQ TAB PO SCH (15:00)
[2023-10-20 05:48] LABS: Hematocrit 24.3 % (36.0-47.0); Hemoglobin 8.2 g/dL (12.0-16.0); Mean Corpuscular HGB CONC 33.7 g/dL (32.0-36.0); Mean Corpuscular Hemoglobin 29.8 pg (27.0-31.0); Mean Corpuscular Volume 88.4 fL (78.0-98.0); Mean Platelet Volume 9.6 fL (7.4-10.4); Platelet Count 543 10x3/uL (130-400); RBC Distribution Width 14.6 % (11.5-14.5); Red Blood Cell (RBC) Count 2.75 mill/uL (4.20-5.40)
[2023-10-20 06:06] LABS: Anion Gap 11 mmol/L (10-20); BUN (Urea Nitrogen) 6 mg/dL (7.0-18.7); Calc. Creatinine Clearance 111 mL/min (70-130); Calcium 7.9 mg/dL (7.8-10.44); Carbon Dioxide 23 mmol/L (22-29); Chloride 105 mmol/L (98-107); Estimated GFR 116; Glucose 105 mg/dL (70-105); Potassium 3.5 mmol/L (3.5-5.1); Sodium 135 mmol/L (136-145)
[2023-10-20] MEDS: Potassium Chloride 20 MEQ TAB PO SCH ×4 (06:29→22:06)
[2023-10-20 12:37] LABS: Potassium 3.5 mmol/L (3.5-5.1)
[2023-10-20 21:03] LABS: Potassium 3.5 mmol/L (3.5-5.1)
[2023-10-21 05:42] LABS: #Basophils 0.03 10x3/uL (0.0-0.2); %Basophils 0.3 % (0.0-1.0); %Eosinophils 2.2 % (0.0-10.0); %Lymphocytes 19.3 % (21.0-51.0); %Neutrophils 64.9 % (42.0-75.0); Hematocrit 24.5 % (36.0-47.0); Hemoglobin 8.1 g/dL (12.0-16.0); Hemoglobin 8.3 g/dL (12.0-16.0); Mean Corpuscular HGB CONC 33.1 g/dL (32.0-36.0); Mean Corpuscular HGB CONC 33.9 g/dL (32.0-36.0); Mean Corpuscular Volume 88.4 fL (78.0-98.0); Mean Corpuscular Volume 90.7 fL (78.0-98.0); Mean Platelet Volume 9.4 fL (7.4-10.4); Mean Platelet Volume 9.5 fL (7.4-10.4); Platelet Count 535 10x3/uL (130-400); Platelet Count 542 10x3/uL (130-400); RBC Distribution Width 14.5 % (11.5-14.5); RBC Distribution Width 14.6 % (11.5-14.5); Red Blood Cell (RBC) Count 2.77 mill/uL (4.20-5.40)
[2023-10-21 05:56] LABS: Anion Gap 11 mmol/L (10-20); BUN (Urea Nitrogen) 5 mg/dL (7.0-18.7); Calc. Creatinine Clearance 111 mL/min (70-130); Carbon Dioxide 24 mmol/L (22-29); Chloride 107 mmol/L (98-107); Estimated GFR 116; Glucose 132 mg/dL (70-105); Potassium 3.3 mmol/L (3.5-5.1); Sodium 139 mmol/L (136-145)
[2023-10-21] MEDS: Potassium Chloride 20 MEQ TAB PO SCH (06:31)
[2023-10-21 23:17] LABS: Potassium 3.3 mmol/L (3.5-5.1)
[2023-10-22] MEDS: Potassium Chloride 20 MEQ TAB PO SCH ×3 (00:43→14:32)
[2023-10-22 05:58] LABS: #Basophils 0.03 10x3/uL (0.0-0.2); %Basophils 0.3 % (0.0-1.0); %Eosinophils 2.3 % (0.0-10.0); %Lymphocytes 17.6 % (21.0-51.0); %Monocytes 11.1 % (0.0-10.0); %Neutrophils 67.9 % (42.0-75.0); Hemoglobin 7.8 g/dL (12.0-16.0); Mean Corpuscular HGB CONC 33.9 g/dL (32.0-36.0); Mean Corpuscular Hemoglobin 30.6 pg (27.0-31.0); Mean Corpuscular Volume 90.2 fL (78.0-98.0); Mean Platelet Volume 9.4 fL (7.4-10.4); Platelet Count 557 10x3/uL (130-400); RBC Distribution Width 14.6 % (11.5-14.5); Red Blood Cell (RBC) Count 2.55 mill/uL (4.20-5.40)
[2023-10-22 06:19] LABS: Anion Gap 11 mmol/L (10-20); BUN (Urea Nitrogen) 4 mg/dL (7.0-18.7); Calc. Creatinine Clearance 119 mL/min (70-130); Carbon Dioxide 26 mmol/L (22-29); Chloride 106 mmol/L (98-107); Estimated GFR 127; Glucose 86 mg/dL (70-105); Magnesium 1.5 mg/dL (1.6-2.6); Sodium 140 mmol/L (136-145)
[2023-10-22] MEDS: Magnesium 2 GM/50 ML(in water) 2 GM in Premix 1 BAG IVPB SCH (07:53)
[2023-10-22 13:44] LABS: Potassium 3.1 mmol/L (3.5-5.1)
[2023-10-22 22:10] LABS: Potassium 3.1 mmol/L (3.5-5.1)
[2023-10-22] MEDS: Potassium Chloride 20 MEQ in Premix 1 BAG IVPB SCH (22:47)
[2023-10-23] MEDS: Potassium Chloride 20 MEQ TAB PO SCH (01:31)
[2023-10-23 05:55] LABS: Hemoglobin 7.6 g/dL (12.0-16.0); Mean Corpuscular Volume 90.9 fL (78.0-98.0); Mean Platelet Volume 9.3 fL (7.4-10.4); Platelet Count 528 10x3/uL (130-400); RBC Distribution Width 14.6 % (11.5-14.5); Red Blood Cell (RBC) Count 2.53 mill/uL (4.20-5.40)
[2023-10-23 06:12] LABS: Anion Gap 11 mmol/L (10-20); BUN (Urea Nitrogen) 5 mg/dL (7.0-18.7); Calc. Creatinine Clearance 114 mL/min (70-130); Calcium 8.4 mg/dL (7.8-10.44); Carbon Dioxide 26 mmol/L (22-29); Chloride 105 mmol/L (98-107); Estimated GFR 124; Glucose 112 mg/dL (70-105); Magnesium 1.7 mg/dL (1.6-2.6); Potassium 3.6 mmol/L (3.5-5.1); Sodium 138 mmol/L (136-145)
[2023-10-23] MEDS: Magnesium 2 GM/50 ML(in water) 2 GM in Premix 1 BAG IVPB SCH (08:23)
[2023-10-23] MEDS: NS 0.9% w/ 40 MEQ KCL 1,000 ML IV SCH (11:54)
[2023-10-24 06:14] LABS: #Basophils Less than 0.03 10x3/uL (0.0-0.2); %Basophils 0.2 % (0.0-1.0); %Eosinophils 2.6 % (0.0-10.0); %Lymphocytes 15.1 % (21.0-51.0); %Monocytes 9.9 % (0.0-10.0); %Neutrophils 71.9 % (42.0-75.0); Hematocrit 26.1 % (36.0-47.0); Hemoglobin 8.6 g/dL (12.0-16.0); Mean Corpuscular Hemoglobin 30.1 pg (27.0-31.0); Mean Corpuscular Volume 91.3 fL (78.0-98.0); Mean Platelet Volume 9.2 fL (7.4-10.4); Platelet Count 569 10x3/uL (130-400); RBC Distribution Width 14.6 % (11.5-14.5); Red Blood Cell (RBC) Count 2.86 mill/uL (4.20-5.40)
[2023-10-24 06:51] LABS: ALT (SGPT) 7 U/L (8-55); AST (SGOT) 19 U/L (5-34); Albumin 3.1 g/dL (3.5-5.0); Alkaline Phosphatase 116 U/L (40-110); Anion Gap 14 mmol/L (10-20); BUN (Urea Nitrogen) 5 mg/dL (7.0-18.7); Bilirubin, Total 0.6 mg/dL (0.2-1.2); Calc. Creatinine Clearance 103 mL/min (70-130); Carbon Dioxide 23 mmol/L (22-29); Chloride 103 mmol/L (98-107); Estimated GFR 109; Globulin 4.5 g/dL (2.4-3.5); Glucose 142 mg/dL (70-105); Magnesium 1.9 mg/dL (1.6-2.6); Phosphorus 2.6 mg/dL (2.3-4.7); Potassium 3.9 mmol/L (3.5-5.1); Protein, Total 7.6 g/dL (6.0-8.3); Sodium 136 mmol/L (136-145)
[2023-10-24] MEDS: Magnesium 2 GM/50 ML(in water) 2 GM in Premix 1 BAG IVPB SCH (09:58)
[2023-10-25] MEDS ORDERED: HumaLOG 300 UNITS/3 ML VIAL SC PRN (08:49)
[2023-10-25 10:44] VITALS: BMI 23.1
[2023-10-25] MEDS: HumaLOG 300 UNITS/3 ML VIAL SC PRN (16:51)
[2023-10-26 05:32] LABS: #Basophils Less than 0.03 10x3/uL (0.0-0.2); %Basophils 0.1 % (0.0-1.0); %Eosinophils 1.9 % (0.0-10.0); %Lymphocytes 15.1 % (21.0-51.0); %Monocytes 10.3 % (0.0-10.0); %Neutrophils 72.3 % (42.0-75.0); Hematocrit 24.3 % (36.0-47.0); Hemoglobin 7.9 g/dL (12.0-16.0); Mean Corpuscular HGB CONC 32.5 g/dL (32.0-36.0); Mean Corpuscular Hemoglobin 30.2 pg (27.0-31.0); Mean Corpuscular Volume 92.7 fL (78.0-98.0); Mean Platelet Volume 9.4 fL (7.4-10.4); Platelet Count 503 10x3/uL (130-400); RBC Distribution Width 14.5 % (11.5-14.5); Red Blood Cell (RBC) Count 2.62 mill/uL (4.20-5.40)
[2023-10-26 05:55] LABS: Anion Gap 14 mmol/L (10-20); BUN (Urea Nitrogen) 11 mg/dL (7.0-18.7); Calc. Creatinine Clearance 81 mL/min (70-130); Calcium 8.7 mg/dL (7.8-10.44); Carbon Dioxide 22 mmol/L (22-29); Chloride 105 mmol/L (98-107); Estimated GFR 85; Glucose 271 mg/dL (70-105); Potassium 4.1 mmol/L (3.5-5.1); Sodium 137 mmol/L (136-145)
[2023-10-26 11:51] VITALS: BP 131/90; TEMP 98.4
[2023-10-26] MEDS: Ertapenem 1 GM in Sodium Chloride 0.9% 100 ML IVPB SCH (13:20)
== END 2023-10-26 17:59 | disposition home or self-care (01) | DRG 853 ==
LOC: IMCU/EMU 13:35 → T4-B 10-14 12:40
PROVIDERS: ADMIT Internal Medicine; ATTEND Internal Medicine
PROC: 3E03329 Introduction of Other Anti-infective into Peripheral Vein, Percutaneous Approach (ICD-10-PCS; 2023-10-05)
PROC: 0FT44ZZ Resection of Gallbladder, Percutaneous Endoscopic Approach (ICD-10-PCS; principal; 2023-10-06)
PROC: BF131ZZ Fluoroscopy of Gallbladder and Bile Ducts using Low Osmolar Contrast (ICD-10-PCS; 2023-10-06)
PROC: 30233N1 Transfusion of Nonautologous Red Blood Cells into Peripheral Vein, Percutaneous Approach (ICD-10-PCS; 2023-10-06)
PROC: 30233J1 Transfusion of Nonautologous Serum Albumin into Peripheral Vein, Percutaneous Approach (ICD-10-PCS; 2023-10-08)
PROC: 4A033R1 Measurement of Arterial Saturation, Peripheral, Percutaneous Approach (ICD-10-PCS; 2023-10-10)
DX: A41.51 Sepsis due to Escherichia coli [E. coli] (principal); D65 Disseminated intravascular coagulation [defibrination syndrome]; E10.10 Type 1 diabetes mellitus with ketoacidosis without coma; N15.1 Renal and perinephric abscess; N17.9 Acute kidney failure, unspecified; N12 Tubulo-interstitial nephritis, not specified as acute or chronic; D68.9 Coagulation defect, unspecified; I47.10 Supraventricular tachycardia, unspecified; I48.92 Unspecified atrial flutter; E87.1 Hypo-osmolality and hyponatremia; K81.0 Acute cholecystitis; E44.0 Moderate protein-calorie malnutrition; R65.20 Severe sepsis without septic shock; D64.9 Anemia, unspecified; E88.09 Other disorders of plasma-protein metabolism, not elsewhere classified; K31.84 Gastroparesis; E10.43 Type 1 diabetes mellitus with diabetic autonomic (poly)neuropathy; E87.6 Hypokalemia; E83.42 Hypomagnesemia; F12.10 Cannabis abuse, uncomplicated; Z88.1 Allergy status to other antibiotic agents; Z88.2 Allergy status to sulfonamides; Z79.899 Other long term (current) drug therapy; Z79.4 Long term (current) use of insulin; Z90.49 Acquired absence of other specified parts of digestive tract; Z83.3 Family history of diabetes mellitus; Z68.23 Body mass index [BMI] 23.0-23.9, adult
CPT/HCPCS: 36415; 36416; 36430; 36569; 47532; 49020; 49405; 71046; 74018; 74178; 76937; 77001; 80048; 80053; 80074; 80076; 82805; 83605; 83735; 84100; 85025; 85027; 85060; 85379; 85384; 85610; 85730; 86850; 86900; 86901; 87040; 87070; 87077; 87149; 87186; 87205; 88304; 89051; 93005; 93010; 94002; 99152; 99153; C1729; C1751; C1889; J0171; J0665; J1100; J1170; J1200; J1335; J1611; J1815; J1885; J2060; J2185; J2250; J2270; J2272; J2405; J2543; J2550; J2704; J2765; J3010; J3370-JW; J3475; J3480; J3490; J7042; J7050; J7070; J7120; J7999; P9016; P9035; P9047; Q9967

== ENCOUNTER 2023-11-09 07:58 | Outpatient (CLI) | payer MEDICAID, OTHER, SELFPAY ==
[2023-11-09] MEDS ORDERED: Iopamidol 370 76% 100 ML VIAL ONE (10:44)
== END 2023-11-09 07:59 | disposition home or self-care (01) ==
LOC: CT 07:58
PROVIDERS: ATTEND Urology
DX: N12 Tubulo-interstitial nephritis, not specified as acute or chronic (principal); N15.1 Renal and perinephric abscess; E10.69 Type 1 diabetes mellitus with other specified complication; Z86.19 Personal history of other infectious and parasitic diseases; R93.421 Abnormal radiologic findings on diagnostic imaging of right kidney; N28.1 Cyst of kidney, acquired; J90 Pleural effusion, not elsewhere classified; R18.8 Other ascites
CPT/HCPCS: 74178; Q9967

== ENCOUNTER 2023-11-09 11:20 | Inpatient (IN) | payer MEDICAID, SELFPAY ==
[2023-11-09] MEDS ORDERED: Morphine 2 MG/ML VIAL ONE (12:33)
[2023-11-09 13:22] LABS: Bacteria/HPF None Seen HPF (None Seen); Bilirubin Negative (Negative); Blood, Urine Trace (Negative); CAUTI Indications for Culture Dysuria,urgency,freq; Clarity Clear (Clear); Glucose, Urine (Dipstick) 200 mg/dL (Negative); Ketone, Urine Negative (Negative); Leukocyte 500 Leu/uL (Negative); Nitrite Negative (Negative); Protein, Urine (Dipstick) 30 mg/dL (Neg-Trace); Specific Gravity, Urine 1.028 (1.002-1.036); Squamous Epithelial 0-3 HPF (0-3); Urobilinogen Normal mg/dL (Less than 2); WBC/HPF Greater than 50 HPF (0-3); pH, Urine 7.5 (5.0-9.0)
[2023-11-09 13:28] LABS: Urine Culture Reflex Yes Yes
[2023-11-09] MEDS ORDERED: Acetaminophen 325 MG TAB PO PRN (13:39)
[2023-11-09] MEDS ORDERED: Glucagon 1 MG/ML KIT IM PRN (13:39)
[2023-11-09] MEDS ORDERED: Dextrose 50% Abboject 50 ML SYRINGE SLOW IVP PRN (13:39)
[2023-11-09] MEDS ORDERED: Dextrose 5% in Water 1,000 ML IV PRN (13:39)
[2023-11-09] MEDS ORDERED: Acetaminophen 650 MG Suppository PR PRN (13:39)
[2023-11-09] MEDS: Promethazine HCl 12.5 MG in Sodium Chloride 0.9% 50 ML IVPB SCH (14:06)
[2023-11-09 14:10] VITALS: BMI 19.7
[2023-11-09] MEDS: traMADol HCl 50 MG TAB PO PRN (14:31)
[2023-11-09] MEDS: Metoprolol Tartrate 25 MG TAB PO SCH ×2 (14:32→20:59)
[2023-11-09] MEDS ORDERED: Non-Formulary Item 1 EACH (Insulin Aspart [Novolog] 100 UNIT/ML Vial) SQ SCH (15:45)
[2023-11-09] MEDS: HYDROcodone/Acetaminophen 5/325 mg Tablet PO PRN (16:38)
[2023-11-09] MEDS: Meropenem 1 GM in Sodium Chloride 0.9% 100 ML IVPB SCH (16:47)
[2023-11-09 18:22] LABS: #Basophils Less than 0.03 10x3/uL (0.0-0.2); %Basophils 0.2 % (0.0-1.0); %Eosinophils 3.7 % (0.0-10.0); %Lymphocytes 22.6 % (21.0-51.0); %Monocytes 8.2 % (0.0-10.0); Hematocrit 26.7 % (36.0-47.0); Mean Corpuscular HGB CONC 33.7 g/dL (32.0-36.0); Mean Corpuscular Hemoglobin 30.9 pg (27.0-31.0); Mean Corpuscular Volume 91.8 fL (78.0-98.0); Mean Platelet Volume 9.8 fL (7.4-10.4); Platelet Count 431 10x3/uL (130-400); RBC Distribution Width 16.9 % (11.5-14.5); Red Blood Cell (RBC) Count 2.91 mill/uL (4.20-5.40)
[2023-11-09 18:30] LABS: BHCG - Serum Negative (NEGATIVE); Pregs Control Background? CLEAR/WHITE (CLR/WHITE); Pregs Control Bar Appear? YES (CONTROL BAR)
[2023-11-09 18:45] LABS: Hemoglobin A1c 5.9 % (4.0-6.0)
[2023-11-09 18:46] LABS: ALT (SGPT) 14 U/L (8-55); AST (SGOT) 23 U/L (5-34); Albumin 3.6 g/dL (3.5-5.0); Alkaline Phosphatase 126 U/L (40-110); Anion Gap 15 mmol/L (10-20); BUN (Urea Nitrogen) 15 mg/dL (7.0-18.7); Bilirubin, Total 0.6 mg/dL (0.2-1.2); Calc. Creatinine Clearance 83 mL/min (70-130); Calcium 9.8 mg/dL (7.8-10.44); Carbon Dioxide 23 mmol/L (22-29); Chloride 104 mmol/L (98-107); Estimated GFR 107; Globulin 5.2 g/dL (2.4-3.5); Glucose 133 mg/dL (70-105); Potassium 3.5 mmol/L (3.5-5.1); Protein, Total 8.8 g/dL (6.0-8.3); Sodium 138 mmol/L (136-145)
[2023-11-09] MEDS: Promethazine HCl 12.5 MG in Sodium Chloride 0.9% 50 ML IVPB PRN (20:47)
[2023-11-09] MEDS: Morphine 2 MG/ML VIAL SLOW IVP SCH (20:53)
[2023-11-10] MEDS: Meropenem 1 GM in Sodium Chloride 0.9% 100 ML IVPB SCH (00:35)
[2023-11-10 06:16] LABS: #Basophils Less than 0.03 10x3/uL (0.0-0.2); %Basophils 0.2 % (0.0-1.0); %Eosinophils 4.1 % (0.0-10.0); %Lymphocytes 15.3 % (21.0-51.0); %Monocytes 8.6 % (0.0-10.0); %Neutrophils 71.4 % (42.0-75.0); ALT (SGPT) 13 U/L (8-55); AST (SGOT) 24 U/L (5-34); Albumin 3.6 g/dL (3.5-5.0); Alkaline Phosphatase 118 U/L (40-110); Anion Gap 16 mmol/L (10-20); BUN (Urea Nitrogen) 15 mg/dL (7.0-18.7); Bilirubin, Total 0.8 mg/dL (0.2-1.2); Calc. Creatinine Clearance 82 mL/min (70-130); Calcium 9.6 mg/dL (7.8-10.44); Carbon Dioxide 22 mmol/L (22-29); Chloride 104 mmol/L (98-107); Estimated GFR 106; Glucose 145 mg/dL (70-105); Hematocrit 26.7 % (36.0-47.0); Mean Corpuscular HGB CONC 33.7 g/dL (32.0-36.0); Mean Corpuscular Hemoglobin 31.3 pg (27.0-31.0); Mean Corpuscular Volume 92.7 fL (78.0-98.0); Mean Platelet Volume 9.9 fL (7.4-10.4); Platelet Count 441 10x3/uL (130-400); Potassium 3.5 mmol/L (3.5-5.1); Protein, Total 8.6 g/dL (6.0-8.3); RBC Distribution Width 16.5 % (11.5-14.5); Red Blood Cell (RBC) Count 2.88 mill/uL (4.20-5.40); Sodium 138 mmol/L (136-145)
[2023-11-10] MEDS: Insulin Glargine 30 UNITS/0.3 ML VIAL SC SCH (08:56)
[2023-11-10] MEDS: Pantoprazole DR 40 MG TAB PO SCH (08:57)
[2023-11-10] MEDS: HumaLOG 300 UNITS/3 ML VIAL SC PRN (11:53)
[2023-11-10] MEDS: diphenhydrAMINE 25 MG CAP PO SCH (23:57)
[2023-11-11] MEDS: busPIRone HCl 10 MG TAB PO SCH (08:30)
[2023-11-12] MEDS: diphenhydrAMINE 12.5 MG/5 ML UDCUP PO SCH ×2 (00:42→21:56)
[2023-11-13] MEDS: diphenhydrAMINE 25 MG CAP PO PRN (21:23)
[2023-11-14 16:32] VITALS: BMI 19.7
[2023-11-14 17:08] VITALS: BP 151/99; TEMP 97.8
== END 2023-11-14 17:07 | disposition home or self-care (01) | DRG 690 ==
LOC: ERS 11:20 → T4-A 13:38
PROVIDERS: ADMIT Internal Medicine; ATTEND Internal Medicine
DX: N15.1 Renal and perinephric abscess (principal); Z16.19 Resistance to other specified beta lactam antibiotics; Z16.24 Resistance to multiple antibiotics; E44.1 Mild protein-calorie malnutrition; Z68.1 Body mass index [BMI] 19.9 or less, adult; N12 Tubulo-interstitial nephritis, not specified as acute or chronic; I48.0 Paroxysmal atrial fibrillation; F12.90 Cannabis use, unspecified, uncomplicated; K31.84 Gastroparesis; D64.9 Anemia, unspecified; E10.43 Type 1 diabetes mellitus with diabetic autonomic (poly)neuropathy; F41.9 Anxiety disorder, unspecified; N28.1 Cyst of kidney, acquired; Z90.49 Acquired absence of other specified parts of digestive tract; Z79.4 Long term (current) use of insulin; Z88.1 Allergy status to other antibiotic agents; Z98.890 Other specified postprocedural states
CPT/HCPCS: 36415; 36416; 36556; 80053; 81001; 83036; 83605; 84703; 85025; 86141; 87086; 96374; 96375; J1815; J2185; J2272; J2550; J3490; Q0163

== ENCOUNTER 2023-11-22 12:49 | Emergency (ER) | payer SELFPAY ==
[2023-11-22 13:36] LABS: #Basophils Less than 0.03 10x3/uL (0.0-0.2); %Basophils 0.1 % (0.0-1.0); %Lymphocytes 24.7 % (21.0-51.0); %Monocytes 6.1 % (0.0-10.0); %Neutrophils 67.9 % (42.0-75.0); Mean Corpuscular HGB CONC 34.4 g/dL (32.0-36.0); Mean Corpuscular Hemoglobin 31.1 pg (27.0-31.0); Mean Corpuscular Volume 90.4 fL (78.0-98.0); Mean Platelet Volume 9.8 fL (7.4-10.4); Platelet Count 450 10x3/uL (130-400); RBC Distribution Width 14.5 % (11.5-14.5); Red Blood Cell (RBC) Count 3.54 mill/uL (4.20-5.40)
[2023-11-22] MEDS ORDERED: Ondansetron PF 4 MG/2 ML Vial ONE (14:11)
[2023-11-22 14:24] LABS: Bilirubin Negative (Negative); Blood, Urine Trace (Negative); CAUTI Indications for Culture Pelvic or flank pain; Clarity Turbid (Clear); Glucose, Urine (Dipstick) Greater than 1000 mg/dL (Negative); Ketone, Urine Negative (Negative); Leukocyte 500 Leu/uL (Negative); Nitrite Negative (Negative); Protein, Urine (Dipstick) 100 mg/dL (Neg-Trace); Specific Gravity, Urine 1.015 (1.002-1.036); Urobilinogen Normal mg/dL (Less than 2); WBC/HPF Greater than 50 HPF (0-3); pH, Urine 7.5 (5.0-9.0)
[2023-11-22 14:34] LABS: ALT (SGPT) 26 U/L (8-55); AST (SGOT) 29 U/L (5-34); Albumin 4.2 g/dL (3.5-5.0); Alkaline Phosphatase 166 U/L (40-110); Anion Gap 16 mmol/L (10-20); BUN (Urea Nitrogen) 20 mg/dL (7.0-18.7); Bilirubin, Total 0.7 mg/dL (0.2-1.2); Calc. Creatinine Clearance 0 mL/min (70-130); Calcium 10.5 mg/dL (7.8-10.44); Carbon Dioxide 22 mmol/L (22-29); Chloride 95 mmol/L (98-107); Estimated GFR 64; Glucose 407 mg/dL (70-105); Potassium 3.9 mmol/L (3.5-5.1); Protein, Total 10.2 g/dL (6.0-8.3); Sodium 129 mmol/L (136-145)
[2023-11-22 14:36] LABS: Pregnancy Test - Urine (BHCG) Negative (Negative); Pregu Control Background? CLEAR/WHITE (CLR/WHITE); Pregu Control Bar Appear? YES (CONTROL BAR); Specific Gravity 1.015 (1.002-1.036)
[2023-11-22 14:49] LABS: Bacteria/HPF Rare-Few HPF (None Seen); Trichomonas/HPF Rare HPF (None Seen); Yeast-Budding Rare HPF (None Seen)
[2023-11-22 14:50] LABS: Urine Culture Reflex Yes Yes
[2023-11-22] MEDS ORDERED: Promethazine HCl 12.5 MG in Sodium Chloride 0.9% 50 ML IVPB SCH (15:15)
[2023-11-22] MEDS ORDERED: Morphine 2 MG/ML VIAL ONE (15:35)
== END 2023-11-22 16:43 | disposition home or self-care (01) ==
LOC: ERS 12:49
DX: R11.2 Nausea with vomiting, unspecified (principal); N39.0 Urinary tract infection, site not specified; E10.9 Type 1 diabetes mellitus without complications; F17.290 Nicotine dependence, other tobacco product, uncomplicated; Z87.2 Personal history of diseases of the skin and subcutaneous tissue; Z95.9 Presence of cardiac and vascular implant and graft, unspecified
CPT/HCPCS: 36415; 74178; 80053; 81001; 81025; 85025; 87086; J2272; J2405; J2550

== ENCOUNTER 2024-03-04 07:32 | Emergency (ER) | payer SELFPAY ==
[2024-03-04 08:26] LABS: #Basophils Less than 0.03 10x3/uL (0.0-0.2); %Basophils 0.2 % (0.0-1.0); %Eosinophils 0.6 % (0.0-10.0); %Lymphocytes 18.1 % (21.0-51.0); %Monocytes 5.3 % (0.0-10.0); %Neutrophils 75.4 % (42.0-75.0); Hematocrit 31.7 % (36.0-47.0); Hemoglobin 11.5 g/dL (12.0-16.0); Mean Corpuscular HGB CONC 36.3 g/dL (32.0-36.0); Mean Corpuscular Hemoglobin 31.8 pg (27.0-31.0); Mean Corpuscular Volume 87.6 fL (78.0-98.0); Mean Platelet Volume 10.4 fL (7.4-10.4); Platelet Count 315 10x3/uL (130-400); RBC Distribution Width 12.2 % (11.5-14.5); Red Blood Cell (RBC) Count 3.62 mill/uL (4.20-5.40)
[2024-03-04] MEDS ORDERED: Morphine 4 MG/ML VIAL ONE ×3 (08:27→13:12)
[2024-03-04] MEDS ORDERED: Ondansetron PF 4 MG/2 ML Vial ONE (08:27)
[2024-03-04 08:30] LABS: Actual Bicarbonate (HCO3v) 20.5 mEq/L (22-28); Analyzer IN Cardio ER; Base Excess -3.8 mEq/L (-2.0 to +3.0); Calcium, Ionized (venous) 1.19 mmol/L (1.16-1.32); Chloride (VBG) 99 mmol/L (98-106); Hematocrit-VBG 38 % (36.0-47.0); Hemoglobin (Hb) 12.9 g/dL (11.7-15.5); Potassium (VBG) 3.96 mmol/L (3.70-5.30); Sodium 135 mmol/L (133-146); pH (venous) 7.389 (7.32-7.43)
[2024-03-04 08:39] LABS: BHCG - Serum Negative (NEGATIVE); Pregs Control Background? CLEAR/WHITE (CLR/WHITE); Pregs Control Bar Appear? YES (CONTROL BAR)
[2024-03-04 08:44] LABS: ALT (SGPT) 9 U/L (8-55); AST (SGOT) 12 U/L (5-34); Albumin 3.8 g/dL (3.5-5.0); Alkaline Phosphatase 154 U/L (40-110); Anion Gap 15 mmol/L (10-20); BUN (Urea Nitrogen) 19 mg/dL (7.0-18.7); Bilirubin, Total 0.4 mg/dL (0.2-1.2); Calc. Creatinine Clearance 0 mL/min (70-130); Calcium 9.5 mg/dL (7.8-10.44); Carbon Dioxide 21 mmol/L (22-29); Chloride 102 mmol/L (98-107); Estimated GFR 55; Globulin 3.7 g/dL (2.4-3.5); Glucose 365 mg/dL (70-105); Lipase 20 U/L (8-78); Protein, Total 7.5 g/dL (6.0-8.3); Sodium 134 mmol/L (136-145)
[2024-03-04] MEDS ORDERED: Iopamidol-370 76% 500 ML MDV (1 ML CHARGE) ONE (10:34)
[2024-03-04 12:40] LABS: Bilirubin Negative (Negative); Blood, Urine Negative (Negative); CAUTI Indications for Culture Pelvic or flank pain; Clarity Clear (Clear); Glucose, Urine (Dipstick) Greater than 1000 mg/dL (Negative); Ketone, Urine 10 mg/dL (Negative); Leukocyte 250 Leu/uL (Negative); Nitrite Negative (Negative); Protein, Urine (Dipstick) 20 mg/dL (Neg-Trace); RBC/HPF 0-3 HPF (0-3); Urobilinogen Normal mg/dL (Less than 2)
[2024-03-04 12:42] LABS: Bacteria/HPF 1+ HPF (None Seen); Specific Gravity, Urine 1.051 (1.002-1.036)
[2024-03-04 12:43] LABS: Urine Culture Reflex Yes Yes
== END 2024-03-04 13:35 | disposition home or self-care (01) ==
LOC: ERS 07:32
DX: N39.0 Urinary tract infection, site not specified (principal); E10.9 Type 1 diabetes mellitus without complications
CPT/HCPCS: 36415; 36416; 74177; 80053; 81001; 82010; 82805; 83605; 83690; 84703; 85025; 87086; 96374; 96375; 96376; J2272; J2405; Q9967

== ENCOUNTER 2024-03-11 00:33 | Inpatient (IN) | payer SELFPAY ==
[2024-03-11] MEDS ORDERED: Morphine 4 MG/ML VIAL ONE (01:04)
[2024-03-11] MEDS ORDERED: D5 1/2 NS w/20 mEq KCL 1,000 ML ONE (01:18)
[2024-03-11 01:38] LABS: #Basophils Less than 0.03 10x3/uL (0.0-0.2); #Eosinophils Less than 0.03 10x3/uL (0.0-0.7); %Basophils 0.2 % (0.0-1.0); %Eosinophils 0.2 % (0.0-10.0); %Lymphocytes 23.6 % (21.0-51.0); %Monocytes 2.4 % (0.0-10.0); %Neutrophils 72.8 % (42.0-75.0); Hematocrit 38.9 % (36.0-47.0); Hemoglobin 13.5 g/dL (12.0-16.0); Mean Corpuscular HGB CONC 34.7 g/dL (32.0-36.0); Mean Corpuscular Hemoglobin 31.7 pg (27.0-31.0); Mean Corpuscular Volume 91.3 fL (78.0-98.0); Mean Platelet Volume 10.2 fL (7.4-10.4); Platelet Count 362 10x3/uL (130-400); RBC Distribution Width 12.5 % (11.5-14.5); Red Blood Cell (RBC) Count 4.26 mill/uL (4.20-5.40)
[2024-03-11 01:52] LABS: Phosphorus 4.1 mg/dL (2.3-4.7)
[2024-03-11 01:54] LABS: ALT (SGPT) 10 U/L (8-55); AST (SGOT) 11 U/L (5-34); Alkaline Phosphatase 146 U/L (40-110); Anion Gap 16 mmol/L (10-20); BUN (Urea Nitrogen) 18 mg/dL (7.0-18.7); Bilirubin, Total 0.3 mg/dL (0.2-1.2); Calc. Creatinine Clearance 0 mL/min (70-130); Calcium 9.6 mg/dL (7.8-10.44); Carbon Dioxide 22 mmol/L (22-29); Chloride 104 mmol/L (98-107); Estimated GFR 79; Globulin 3.8 g/dL (2.4-3.5); Glucose 109 mg/dL (70-105); Potassium 3.6 mmol/L (3.5-5.1); Protein, Total 7.8 g/dL (6.0-8.3); Sodium 138 mmol/L (136-145)
[2024-03-11 01:59] LABS: Troponin I Less than 0.010 ng/mL (< 0.028)
[2024-03-11] MEDS ORDERED: Glucagon 1 MG/ML KIT IM PRN (02:48)
[2024-03-11] MEDS ORDERED: Dextrose 5% in Water 1,000 ML IV PRN (02:48)
[2024-03-11] MEDS ORDERED: Dextrose 50% Abboject 50 ML SYRINGE SLOW IVP PRN (02:48)
[2024-03-11] MEDS ORDERED: Calcium Carbonate 500 MG ChewTAB PO PRN (02:49)
[2024-03-11] MEDS ORDERED: Ondansetron ODT 4 MG TAB PO PRN (02:49)
[2024-03-11] MEDS ORDERED: Acetaminophen 650 MG Suppository PR PRN (02:49)
[2024-03-11] MEDS: Lactated Ringer's 1,000 ML IV SCH (04:23)
[2024-03-11] MEDS: Promethazine HCl 12.5 MG in Sodium Chloride 0.9% 50 ML IVPB SCH (04:24)
[2024-03-11] MEDS: HYDROcodone/Acetaminophen 5/325 mg Tablet PO SCH ×2 (04:24→15:57)
[2024-03-11 05:35] LABS: ALT (SGPT) 9 U/L (8-55); AST (SGOT) 18 U/L (5-34); Albumin 3.5 g/dL (3.5-5.0); Alkaline Phosphatase 122 U/L (40-110); Anion Gap 18 mmol/L (10-20); BUN (Urea Nitrogen) 17 mg/dL (7.0-18.7); Bilirubin, Total 0.3 mg/dL (0.2-1.2); Calc. Creatinine Clearance 77 mL/min (70-130); Calcium 8.9 mg/dL (7.8-10.44); Carbon Dioxide 16 mmol/L (22-29); Chloride 103 mmol/L (98-107); Estimated GFR 97; Globulin 3.7 g/dL (2.4-3.5); Glucose 169 mg/dL (70-105); Potassium 4.2 mmol/L (3.5-5.1); Protein, Total 7.2 g/dL (6.0-8.3); Sodium 133 mmol/L (136-145)
[2024-03-11] MEDS: Insulin Lispro 100 UNIT/ML 10 ML VIAL SC PRN (06:15)
[2024-03-11] MEDS: Acetaminophen 325 MG TAB PO SCH (06:18)
[2024-03-11] MEDS: Ondansetron PF 4 MG/2 ML Vial IVP PRN (07:39)
[2024-03-11] MEDS: Insulin Glargine 30 UNITS/0.3 ML VIAL SC SCH (09:30)
[2024-03-11] MEDS: Famotidine/PF 20 mg/2ml Vial SLOW IVP SCH (09:30)
[2024-03-11] MEDS: busPIRone HCl 10 MG TAB PO SCH (09:30)
[2024-03-11] MEDS: Famotidine 20 MG TAB PO SCH (09:30)
[2024-03-11] MEDS: Pantoprazole DR 40 MG TAB PO SCH (09:30)
[2024-03-11] MEDS ORDERED: Lactated Ringer's 1,000 ML IV SCH (09:38)
[2024-03-11] MEDS: traMADol HCl 50 MG TAB PO PRN (11:19)
[2024-03-11] MEDS: Dextrose 5%-Lactated Ringers 1,000 ML IV SCH ×2 (11:20→17:41)
[2024-03-11] MEDS ORDERED: Labetalol HCl 100 MG/20 ML VIAL SLOW IVP PRN (12:07)
[2024-03-11] MEDS ORDERED: Metoclopramide HCl 10 MG (2 mL) VIAL IVP PRN (15:36)
[2024-03-11] MEDS: Amlodipine 5 MG TAB PO SCH (20:30)
[2024-03-12 07:45] LABS: Anion Gap 12 mmol/L (10-20); BUN (Urea Nitrogen) 9 mg/dL (7.0-18.7); Calc. Creatinine Clearance 92 mL/min (70-130); Calcium 9.1 mg/dL (7.8-10.44); Carbon Dioxide 20 mmol/L (22-29); Chloride 104 mmol/L (98-107); Estimated GFR 119; Glucose 161 mg/dL (70-105); Magnesium 1.6 mg/dL (1.6-2.6); Potassium 3.4 mmol/L (3.5-5.1); Sodium 133 mmol/L (136-145)
[2024-03-12] MEDS: Magnesium Sulfate In Water 4 GM in Premix 1 BAG IVPB SCH (11:35)
[2024-03-12] MEDS: Potassium Phosphate 30 MMOL in Sodium Chloride 0.9% 500 ML IVPB SCH (11:35)
[2024-03-12] MEDS ORDERED: Dicyclomine 10 MG CAP PO PRN (13:24)
[2024-03-12] MEDS ORDERED: cloNIDine 0.1 MG TAB PO PRN (13:25)
[2024-03-12] MEDS: Promethazine HCl 12.5 MG in Sodium Chloride 0.9% 50 ML IVPB PRN (14:12)
[2024-03-12] MEDS: Dextrose 5%-Lactated Ringers 1,000 ML IV SCH (14:17)
[2024-03-12] MEDS: Heparin 5,000 UNITS/ML VIAL SC SCH (20:29)
[2024-03-12] MEDS: traMADol HCl 50 MG TAB PO PRN (20:30)
[2024-03-12] MEDS: diphenhydrAMINE 25 MG CAP PO SCH (23:07)
[2024-03-13 06:20] LABS: #Basophils Less than 0.03 10x3/uL (0.0-0.2); %Basophils 0.2 % (0.0-1.0); %Eosinophils 1.7 % (0.0-10.0); %Lymphocytes 41.2 % (21.0-51.0); %Monocytes 6.6 % (0.0-10.0); %Neutrophils 49.9 % (42.0-75.0); Hematocrit 37.3 % (36.0-47.0); Hemoglobin 13.2 g/dL (12.0-16.0); Mean Corpuscular HGB CONC 35.4 g/dL (32.0-36.0); Mean Corpuscular Hemoglobin 31.8 pg (27.0-31.0); Mean Corpuscular Volume 89.9 fL (78.0-98.0); Mean Platelet Volume 9.8 fL (7.4-10.4); Platelet Count 332 10x3/uL (130-400); RBC Distribution Width 12.4 % (11.5-14.5); Red Blood Cell (RBC) Count 4.15 mill/uL (4.20-5.40)
[2024-03-13 06:35] LABS: Anion Gap 11 mmol/L (10-20); BUN (Urea Nitrogen) 5 mg/dL (7.0-18.7); Calc. Creatinine Clearance 86 mL/min (70-130); Calcium 8.8 mg/dL (7.8-10.44); Carbon Dioxide 23 mmol/L (22-29); Chloride 104 mmol/L (98-107); Estimated GFR 110; Glucose 197 mg/dL (70-105); Potassium 3.2 mmol/L (3.5-5.1); Sodium 135 mmol/L (136-145)
[2024-03-13] MEDS: Pantoprazole 40 MG VIAL IVP SCH (08:13)
[2024-03-13] MEDS: Insulin Glargine 30 UNITS/0.3 ML VIAL SC SCH (08:30)
[2024-03-13] MEDS: Potassium Phosphate 30 MMOL in Sodium Chloride 0.9% 250 ML 250 ML IVPB SCH (11:34)
[2024-03-13] MEDS ORDERED: Midazolam HCl 2 mg/2 ml Vial ONE (13:43)
[2024-03-13] MEDS ORDERED: PHENYLEPHRINE-NS 100 MCG/ML 10 ML SYRINGE ONE (13:43)
[2024-03-13] MEDS ORDERED: PROPOFOL 20 ML ONE (13:43)
[2024-03-13] MEDS ORDERED: Lidocaine 1% PF 5 ML VIAL ONE (13:43)
[2024-03-13] MEDS: Insulin Lispro 100 UNIT/ML 10 ML VIAL SC PRN (20:40)
[2024-03-13] MEDS: diphenhydrAMINE 25 MG CAP PO SCH (23:27)
[2024-03-14 05:07] LABS: #Basophils Less than 0.03 10x3/uL (0.0-0.2); %Basophils 0.4 % (0.0-1.0); %Eosinophils 1.6 % (0.0-10.0); %Monocytes 7.9 % (0.0-10.0); %Neutrophils 46.9 % (42.0-75.0); Hemoglobin 11.9 g/dL (12.0-16.0); Mean Corpuscular Hemoglobin 31.9 pg (27.0-31.0); Mean Corpuscular Volume 93.8 fL (78.0-98.0); Mean Platelet Volume 9.8 fL (7.4-10.4); Platelet Count 354 10x3/uL (130-400); RBC Distribution Width 12.5 % (11.5-14.5); Red Blood Cell (RBC) Count 3.73 mill/uL (4.20-5.40)
[2024-03-14 05:21] LABS: Anion Gap 11 mmol/L (10-20); BUN (Urea Nitrogen) 9 mg/dL (7.0-18.7); Calc. Creatinine Clearance 78 mL/min (70-130); Calcium 8.8 mg/dL (7.8-10.44); Carbon Dioxide 23 mmol/L (22-29); Chloride 105 mmol/L (98-107); Estimated GFR 98; Glucose 258 mg/dL (70-105); Sodium 135 mmol/L (136-145)
[2024-03-14] MEDS: FLU (Fluarix Triv) TS24-25(6MOS UP)/PF 45 MCG/0.5 ML Syringe IM ONE (09:07)
[2024-03-14 16:59] VITALS: BP 127/86; TEMP 98.4
== END 2024-03-14 18:43 | disposition home or self-care (01) | DRG 638 ==
LOC: ERS 00:33 → T4-B 03:37 → OBSVTOIN 10:47
PROVIDERS: ADMIT Student in an Organized Health Care Education/Training Program; ATTEND Internal Medicine
PROC: 0DB68ZX Excision of Stomach, Via Natural or Artificial Opening Endoscopic, Diagnostic (ICD-10-PCS; principal; 2024-03-13)
DX: E10.10 Type 1 diabetes mellitus with ketoacidosis without coma (principal); E87.1 Hypo-osmolality and hyponatremia; F12.10 Cannabis abuse, uncomplicated; E10.43 Type 1 diabetes mellitus with diabetic autonomic (poly)neuropathy; E86.0 Dehydration; E87.6 Hypokalemia; E83.42 Hypomagnesemia; R11.2 Nausea with vomiting, unspecified; K29.70 Gastritis, unspecified, without bleeding; Z90.49 Acquired absence of other specified parts of digestive tract; Z88.8 Allergy status to other drugs, medicaments and biological substances; Z98.890 Other specified postprocedural states; Z83.3 Family history of diabetes mellitus
CPT/HCPCS: 36415; 36416; 71045; 74019; 80048; 80053; 82010; 83735; 84100; 84484; 85025; 88305; 88342; 93005; 93010; 96361; 96374; 96375; G0378; J1644; J1815; J2250; J2272; J2405; J2470; J2550; J2704; J3475; J3480; J7030; J7050; J7120